=== PATIENT | female | born 1955 | race Caucasian/White ===

== ENCOUNTER 2021-07-06 16:28 | Inpatient (IN) | payer OTHER ==
[~2021-07-06] VITALS: Ht 157.5 cm; Wt 99.6 kg
[2021-07-06 17:39] LABS: MICROSCOPIC INDICATED
[2021-07-06 18:34] LABS: BASOPHILS % (AUTO) 0 % (0-1); EOSINOPHILS % (AUTO) 0 % (1-7); LYMPHOCYTES % (AUTO) 6 % (22-44); MEAN CORPUSCULAR HEMOGLOBIN 28.3 pg (27.0-34.8); MEAN CORPUSCULAR HGB CONC 33.4 g/dL (32.4-35.8); MONOCYTES % (AUTO) 2 % (2-9); NEUTROPHILS % (AUTO) 93 % (42-75); PLATELET COUNT 226 x10^3/uL (130-400); RED BLOOD COUNT 4.58 x10^6/uL (3.82-5.3); RED CELL DISTRIBUTION WIDTH 13.7 % (9.6-15.2)
[2021-07-06 18:44] LABS: ALBUMIN 3.7 g/dL (3.4-5.0); ANION GAP 10 mmol/L (5-15); CHLORIDE 105 mmol/L (98-107)
[2021-07-06 18:50] LABS: ALANINE AMINOTRANSFERASE 158 U/L (12-78); ALKALINE PHOSPHATASE 103 U/L (45-117); BILIRUBIN,TOTAL 1.6 mg/dL (0.2-1.0); CALCIUM 9.1 mg/dL (8.5-10.1); CREATININE 1.25 mg/dL (0.55-1.02); TOTAL PROTEIN 8.4 g/dL (6.4-8.2)
--- NOTE | 2021-07-06 19:59 | NUR ---
WHEELED TO ROOM FROM LOBBY.
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
[2021-07-06] MEDS ORDERED: HYDROmorphone 2 MG/ML, 1ML ONE (20:27)
[2021-07-06] MEDS ORDERED: ONDANSETRON 2MG/ML, 2ML ONE (20:28)
[2021-07-06] MEDS ORDERED: HYDROmorphone 1 MG/ML, 1ML INJ IV ONE (20:30)
[2021-07-06] MEDS ORDERED: SODIUM CHLORIDE FLUSH 10ML SYR IVF ONE (20:30)
[2021-07-06] MEDS ORDERED: ONDANSETRON 2MG/ML, 2ML IVPush ONE (20:30)
[2021-07-06] MEDS ORDERED: SODIUM CHLORIDE 0.9% 1,000ML IVBOLUS ONE (20:30)
--- NOTE | 2021-07-06 20:41 | NUR ---
CHART UP FOR RECHECK
[2021-07-06] MEDS ORDERED: HYDROmorphone 1 MG/ML, 1ML INJ IV PRN (21:00)
[2021-07-06] MEDS ORDERED: OMNIPAQUE 350 MG/ML, 100ML BOTTLE ONE (21:15)
--- NOTE | 2021-07-06 21:38 | NUR ---
PATIENT RESTING ON GURNEY, STATES PAIN IS TOLERABLE AT 4/10, VSS, NAD AT THIS TIME, REQUESTING ICE CHIPS BUT OKAY WITH NOT BEING ABLE TO HAVE ANYTHING RIGHT NOW.
[2021-07-06] MEDS ORDERED: morphine SULFATE 10 MG/ML, 1ML IVPush PRN (22:00)
[2021-07-06] MEDS ORDERED: BISACODYL 10 MG SUPP PR PRN (22:00)
[2021-07-06] MEDS ORDERED: LACTATED RINGERS 1,000 ML IV SCH (22:00)
[2021-07-06] MEDS ORDERED: ONDANSETRON 2MG/ML, 2ML IVPush PRN (22:00)
--- NOTE | 2021-07-06 22:19 | NUR ---
ASSISTED PATIENT TO RESTROOM, PATIENT AMBULATED WITH STEADY GAIT.
[2021-07-06] MEDS ORDERED: LOSA1TAB22 PO (22:24)
[2021-07-06] MEDS: POTASSIUM CHLORIDE 20 MEQ in LACTATED RINGERS 1,000 ML IV ONE (23:22)
[2021-07-06] MEDS: PIPERACILLIN/TAZO 3.375 GM in DEXTROSE 5% 50 ML IV SCH (23:22)
[2021-07-06] MEDS: HEPARIN 5,000 UNITS/ML, 1ML SQ SCH (23:22)
[2021-07-07] MEDS: POTASSIUM CHLORIDE 20 MEQ in LACTATED RINGERS 1,000 ML IV ONE (00:04)
[2021-07-07 01:01] VITALS: BP 116/70
[2021-07-07] MEDS: PIPERACILLIN/TAZO 3.375 GM in DEXTROSE 5% 50 ML IV SCH ×4 (05:21→23:28)
[2021-07-07 06:00] LABS: BASOPHILS % (AUTO) 0 % (0-1); EOSINOPHILS % (AUTO) 0 % (1-7); LYMPHOCYTES % (AUTO) 5 % (22-44); MEAN CORPUSCULAR HEMOGLOBIN 28.6 pg (27.0-34.8); MEAN CORPUSCULAR HGB CONC 33.4 g/dL (32.4-35.8); MEAN PLATELET VOLUME 9.3 fL (7.4-10.4); MONOCYTES % (AUTO) 5 % (2-9); NEUTROPHILS % (AUTO) 90 % (42-75); PLATELET COUNT 185 x10^3/uL (130-400); RED BLOOD COUNT 3.99 x10^6/uL (3.82-5.3); RED CELL DISTRIBUTION WIDTH 13.5 % (9.6-15.2)
[2021-07-07 06:09] LABS: ALBUMIN 2.6 g/dL (3.4-5.0); ANION GAP 6 mmol/L (5-15); CALCIUM 7.8 mg/dL (8.5-10.1); CHLORIDE 107 mmol/L (98-107)
[2021-07-07 06:13] LABS: ALANINE AMINOTRANSFERASE 134 U/L (12-78); ALKALINE PHOSPHATASE 72 U/L (45-117); BILIRUBIN,TOTAL 0.9 mg/dL (0.2-1.0); CHOL/HDL RATIO 2.9; CHOLESTEROL, TOTAL 146 mg/dL (140-239); CREATININE 1.24 mg/dL (0.55-1.02); HDL CHOL % 35 % (28-40); HDL CHOLESTEROL (DIRECT) 51 mg/dL (40-60); LDL CHOLESTEROL,CALCULATED 86 mg/dL (54-169); LDL/HDL RATIO 1.7 (0.5-3.0); TOTAL PROTEIN 6.6 g/dL (6.4-8.2); TRIGLYCERIDES 45 mg/dL (50-200); VLDL CHOLESTEROL 9 mg/dL (0-25)
[2021-07-07 07:56] VITALS: BP 90/55
[2021-07-07] MEDS: HEPARIN 5,000 UNITS/ML, 1ML SQ SCH ×3 (08:15→23:28)
[2021-07-07] MEDS: LACTATED RINGERS 1,000 ML IV SCH ×2 (10:21→16:40)
[2021-07-07 12:37] VITALS: BP 100/65
[2021-07-07 20:23] VITALS: BP 112/71
[2021-07-08 00:13] VITALS: BP 104/65
[2021-07-08] MEDS: LACTATED RINGERS 1,000 ML IV SCH (03:11)
[2021-07-08] MEDS: PIPERACILLIN/TAZO 3.375 GM in DEXTROSE 5% 50 ML IV SCH ×3 (05:27→19:43)
[2021-07-08 06:17] LABS: BASOPHILS % (AUTO) 0 % (0-1); EOSINOPHILS % (AUTO) 1 % (1-7); LYMPHOCYTES % (AUTO) 12 % (22-44); MEAN CORPUSCULAR HEMOGLOBIN 28.3 pg (27.0-34.8); MEAN CORPUSCULAR HGB CONC 33.4 g/dL (32.4-35.8); MEAN PLATELET VOLUME 9.2 fL (7.4-10.4); MONOCYTES % (AUTO) 4 % (2-9); NEUTROPHILS % (AUTO) 83 % (42-75); PLATELET COUNT 159 x10^3/uL (130-400); RED BLOOD COUNT 3.64 x10^6/uL (3.82-5.3); RED CELL DISTRIBUTION WIDTH 13.5 % (9.6-15.2)
[2021-07-08 06:21] LABS: CHLORIDE 105 mmol/L (98-107)
[2021-07-08 06:33] LABS: ALANINE AMINOTRANSFERASE 78 U/L (12-78); ALBUMIN 2.3 g/dL (3.4-5.0); ALKALINE PHOSPHATASE 64 U/L (45-117); ANION GAP 9 mmol/L (5-15); BILIRUBIN,TOTAL 0.9 mg/dL (0.2-1.0); CALCIUM 8.1 mg/dL (8.5-10.1); TOTAL PROTEIN 6.5 g/dL (6.4-8.2)
[2021-07-08] MEDS ORDERED: POTASSIUM CHLORIDE 40 MEQ in SODIUM CHLORIDE 0.9% 500 ML IV ONE (07:00)
[2021-07-08] MEDS ORDERED: POTASSIUM CHLORIDE 20 MEQ TAB.ER.PRT PO ONE (07:00)
[2021-07-08 07:54] VITALS: BP 119/72
[2021-07-08] MEDS ORDERED: ONDANSETRON 2MG/ML, 2ML IVPush ONE (09:30)
[2021-07-08] MEDS: NS + 40MEQ KCL 1,000 ML IV SCH ×2 (09:40→13:07)
[2021-07-08] MEDS: HEPARIN 5,000 UNITS/ML, 1ML SQ SCH ×2 (09:40→15:11)
[2021-07-08 13:40] VITALS: BP 143/77
[2021-07-08 15:41] LABS: ANION GAP 7 mmol/L (5-15); CALCIUM 8.1 mg/dL (8.5-10.1); CHLORIDE 108 mmol/L (98-107); CREATININE 0.96 mg/dL (0.55-1.02)
[2021-07-08 18:56] VITALS: BP 158/88
[2021-07-09 00:03] VITALS: BP 146/80
[2021-07-09] MEDS: NS + 40MEQ KCL 1,000 ML IV SCH (00:03)
[2021-07-09] MEDS: HEPARIN 5,000 UNITS/ML, 1ML SQ SCH ×3 (00:03→15:19)
[2021-07-09] MEDS: PIPERACILLIN/TAZO 3.375 GM in DEXTROSE 5% 50 ML IV SCH ×4 (01:46→19:32)
[2021-07-09 04:19] LABS: BASOPHILS % (AUTO) 1 % (0-1); EOSINOPHILS % (AUTO) 3 % (1-7); LYMPHOCYTES % (AUTO) 19 % (22-44); MEAN CORPUSCULAR HEMOGLOBIN 28.9 pg (27.0-34.8); MEAN CORPUSCULAR HGB CONC 33.6 g/dL (32.4-35.8); MEAN PLATELET VOLUME 9.6 fL (7.4-10.4); MONOCYTES % (AUTO) 6 % (2-9); NEUTROPHILS % (AUTO) 71 % (42-75); PLATELET COUNT 161 x10^3/uL (130-400); RED BLOOD COUNT 3.62 x10^6/uL (3.82-5.3); RED CELL DISTRIBUTION WIDTH 13.3 % (9.6-15.2)
[2021-07-09 04:32] LABS: ALBUMIN 2.6 g/dL (3.4-5.0); ANION GAP 8 mmol/L (5-15); CALCIUM 8.3 mg/dL (8.5-10.1); CHLORIDE 112 mmol/L (98-107)
[2021-07-09 04:36] LABS: ALANINE AMINOTRANSFERASE 58 U/L (12-78); ALKALINE PHOSPHATASE 61 U/L (45-117); BILIRUBIN,TOTAL 0.6 mg/dL (0.2-1.0); TOTAL PROTEIN 6.7 g/dL (6.4-8.2)
[2021-07-09] MEDS: SODIUM CHLORIDE 0.9% 1,000 ML IV SCH (09:00)
[2021-07-09 10:00] VITALS: BP 158/88
[2021-07-09] MEDS ORDERED: MIDAZOLAM 1 MG/ML, 2ML ONE (10:04)
[2021-07-09] MEDS ORDERED: FENTANYL PF 250 MCG/5ML ONE (10:05)
[2021-07-09] MEDS ORDERED: ROCURONIUM 10MG/ML,5ML ONE (10:07)
[2021-07-09] MEDS ORDERED: DEXAMETHASONE 4 MG/ML, 5ML ONE ×2 (10:18→12:06)
[2021-07-09] MEDS ORDERED: EPINEPHRINE 1 MG/ML, 1ML ONE (10:20)
[2021-07-09] MEDS ORDERED: BUPIVACAINE/PF 0.5% ONE (10:20)
[2021-07-09] MEDS ORDERED: BUPIVACAINE/PF-EPI 0.5% 1:200K IM ONE (11:43)
[2021-07-09] MEDS ORDERED: SUGAMMADEX 200 MG/2 ML IVPush ONE (12:04)
[2021-07-09] MEDS ORDERED: ONDANSETRON 2MG/ML, 2ML ONE ×2 (12:06)
[2021-07-09] MEDS ORDERED: OXYcodone 5 MG/5 ML ORAL.SOL UDC ONE (12:28)
[2021-07-09] MEDS ORDERED: PROMETHAZINE 12.5 MG SUPP PR PRN (12:30)
[2021-07-09] MEDS ORDERED: ALBUTEROL SULFATE 2.5 MG/3 ML NPPB PRN (12:30)
[2021-07-09] MEDS ORDERED: FENTANYL PF 100 MCG/2ML IV PRN (12:30)
[2021-07-09] MEDS ORDERED: ONDANSETRON 2MG/ML, 2ML IVPush PRN (12:30)
[2021-07-09] MEDS ORDERED: LABETALOL 5MG/ML, 20ML IV PRN (12:30)
[2021-07-09] MEDS ORDERED: OXYcodone 5 MG/5 ML ORAL.SOL UDC PO PRN (12:30)
[2021-07-09] MEDS ORDERED: HYDROmorphone 1 MG/ML, 1ML INJ IVPush PRN (12:30)
[2021-07-09] MEDS ORDERED: MEPERIDINE/PF 25MG/0.5ML IVPush PRN (12:30)
[2021-07-09] MEDS ORDERED: DIAZEPAM 5 MG/ML, 2ML IVPush PRN (12:30)
[2021-07-09] MEDS ORDERED: EPHEDRINE 50 MG/ML, 1ML IVPush PRN (12:30)
[2021-07-09] MEDS ORDERED: MIDAZOLAM 1 MG/ML, 2ML IV PRN (12:30)
[2021-07-09] MEDS ORDERED: hydrALAzine 20 MG/ML, 1ML IV PRN ×2 (12:30→14:30)
[2021-07-09] MEDS ORDERED: PROMETHAZINE 25 MG/ML, 1ML IVPush PRN (12:30)
[2021-07-09] MEDS ORDERED: DIPHENHYDRAMINE 50 MG/ML, 1ML IVPush PRN ×2 (12:30)
[2021-07-09] MEDS ORDERED: FENTANYL PF 100 MCG/2ML ONE (12:48)
[2021-07-09] MEDS: morphine SULFATE 10 MG/ML, 1ML IVPush PRN ×4 (14:22→20:38)
[2021-07-09 14:26] VITALS: BP 181/90
[2021-07-09 15:46] VITALS: BP 159/89
[2021-07-09 19:29] VITALS: BP 155/88
[2021-07-10] VITALS: BP 141/75
[2021-07-10] MEDS: HEPARIN 5,000 UNITS/ML, 1ML SQ SCH ×2 (00:06→09:02)
[2021-07-10] MEDS: morphine SULFATE 10 MG/ML, 1ML IVPush PRN (00:06)
[2021-07-10] MEDS: PIPERACILLIN/TAZO 3.375 GM in DEXTROSE 5% 50 ML IV SCH ×3 (02:19→14:00)
[2021-07-10 02:57] VITALS: BP 160/99
[2021-07-10 08:29] VITALS: BP 177/89
[2021-07-10] MEDS ORDERED: ACET325C6 PEG (09:23)
[2021-07-10] MEDS ORDERED: HYDROcodone/APAP 5/325 TABLET PO PRN (10:30)
[2021-07-10 15:18] VITALS: BP 170/84
[2021-07-10] MEDS: SODIUM CHLORIDE 0.9% 1,000 ML IV SCH (15:45)
[2021-07-10] MEDS ORDERED: AMLODIPINE 5 MG TABLET PO SCH (21:00)
[2021-07-10] MEDS ORDERED: LOSARTAN 25MG TABLET PO SCH (21:00)
== END 2021-07-10 16:58 | disposition home or self-care (01) | DRG 417 ==
LOC: ED 21:22 → EDIP 21:27 → 3N 22:35
PROVIDERS: ADMIT Family Medicine; ATTEND Internal Medicine
PROC: 0FT44ZZ Resection of Gallbladder, Percutaneous Endoscopic Approach (ICD-10-PCS; principal; 2021-07-09 10:45)
DX: K80.00 Calculus of gallbladder with acute cholecystitis without obstruction (principal); K85.10 Biliary acute pancreatitis without necrosis or infection; Z68.41 Body mass index [BMI] 40.0-44.9, adult; K56.7 Ileus, unspecified; Z20.822 Contact with and (suspected) exposure to COVID-19; D72.828 Other elevated white blood cell count; E66.01 Morbid (severe) obesity due to excess calories; E87.6 Hypokalemia; Z96.653 Presence of artificial knee joint, bilateral; I10 Essential (primary) hypertension; Z80.9 Family history of malignant neoplasm, unspecified; Z82.5 Family history of asthma and other chronic lower respiratory diseases
CPT/HCPCS: 36415; 99291; S0020; 74177; 74181; 76700; 80048; 80053; 80061; 81001; 82330; 82962; 83690; 83735; 85025; 87635; 88304; 93005; G0378; J0171; J1100; J1170; J1644; J2250; J2405; J2543; J3010; J3480; Q9967; C1760; J0360; J2270; J7030; J7040; J7120